=== PATIENT | female | born 1945 | race Caucasian/White ===

== ENCOUNTER 2017-03-23 15:14 | Emergency (ER) | payer OTHER ==
[2017-03-23 18:24] LABS: HEMOGLOBIN 15.1 gm/dl (12.3-15.3); RED BLOOD COUNT 4.69 M/UL (4.00-5.10); WHITE BLOOD COUNT 7.4 K/UL (4.5-11.0)
== END 2017-03-23 20:48 | disposition home or self-care (01) ==
LOC: ER1 15:14
PROVIDERS: Family Medicine
DX: R51 Headache (principal); R55 Syncope and collapse; R42 Dizziness and giddiness; R11.10 Vomiting, unspecified; I10 Essential (primary) hypertension; Z79.899 Other long term (current) drug therapy
CPT/HCPCS: 36415; 70450; 71010; 80053; 82550; 82553; 83874; 84484; 85025; 93005; 96360; 99284